=== PATIENT | female | born 1990 | race Caucasian/White ===

== ENCOUNTER 2018-04-08 09:22 | Inpatient (IN) | payer BC ==
[~2018-04-08] VITALS: Ht 170.2 cm; Wt 104.5 kg
[2018-04-09 18:33] VITALS: BP 136/78; PULSE 72; TEMP 98.3
[2018-04-09 19:34] LABS: COLLECTION METHOD CLEAN CATCH
[2018-04-09 19:40] LABS: PH 7 (5-8); SQUAMOUS EPITHELIAL 0-2 /hpf; URINE APPEARANCE Clear; URINE BACTERIA Rare /hpf; URINE BILIRUBIN Negative (NEGATIVE); URINE BLOOD Negative (NEGATIVE); URINE COLOR Yellow; URINE GLUCOSE Negative (NEGATIVE); URINE KETONE Negative (NEGATIVE); URINE LEUKOCYTE ESTERASE Trace (NEGATIVE); URINE NITRATE Negative (NEGATIVE); URINE PROTEIN(semi-quant) Negative (NEGATIVE); URINE RBC 0-2 /hpf; URINE UROBILINOGEN Negative (NEGATIVE); URINE WBC 0-2 /hpf
[2018-04-09] MEDS ORDERED: PRENATAL MVI PO (20:30)
[2018-04-09] MEDS ORDERED: GARLIC100 MG PO (20:31)
[2018-04-09] MEDS ORDERED: OMEGA-3 1000 MG1 CAP PO (20:31)
[2018-04-09] MEDS ORDERED: CALCIUM CARBON650 M2 PO (20:31)
[2018-04-09] MEDS ORDERED: PRILOSEC 20MG20 MG PO (20:32)
[2018-04-09 21:00] VITALS: BP 137/82; PULSE 70
[2018-04-09 21:15] LABS: BASO % 0.2 % (0.0-2.0); EOS # 0.1 (0.0-0.7); EOS % 0.8 % (0-4.0); GRAN # 6.7 (1.4-6.5); HEMOGLOBIN 11.2 g/dl (12.5-16.0); LYMPH # 1.3 (1.2-3.4); LYMPH % 14.4 % (20.0-51.0); MEAN CELL VOLUME 92 fl (80.0-100.0); MEAN CORPUSCULAR HEMOGLOBIN 32 pg (27.0-31.0); MEAN CORPUSCULAR HGB CONC 35 g/dl (33.0-37.0); MEAN PLATELET VOLUME 11.2 fl (7.4-10.4); MONO # 0.9 (0.1-0.6); MONO % 9.5 % (1.7-9.3); PLATELET COUNT 182 K/mm3 (130-400); RED BLOOD COUNT 3.53 M/mm3 (4.10-5.30); REDCELL DISTRIBUTION WIDTH-CV 12.5 % (11.5-14.5)
[2018-04-09 21:19] LABS: HEMATOCRIT 32.4 % (37.0-47.0)
[2018-04-09 21:23] LABS: ALBUMIN 3.3 gm/dL (3.5-5.0); BILIRUBIN,TOTAL 0.3 mg/dL (0.0-1.0); CALCIUM 8.7 mg/dL (8.4-10.2); CREATININE, serum 0.55 mg/dL (0.52-1.25); POTASSIUM 3.7 mmol/L (3.4-5.0); TOTAL PROTEIN 6.7 gm/dL (6.4-8.2)
[2018-04-09 21:30] VITALS: BP 140/78; PULSE 77
[2018-04-09 22:00] VITALS: BP 120/67; PULSE 76
[2018-04-09 22:30] VITALS: BP 142/84; PULSE 85
[2018-04-09 23:00] VITALS: BP 123/72; PULSE 80; TEMP 98
[2018-04-10] VITALS (62 sets, daily range): BP systolic 91–175; BP diastolic 50–100; PULSE 61–100; TEMP 97.6–98.7
[2018-04-11] VITALS (9 sets, daily range): BP systolic 127–149; BP diastolic 51–87; PULSE 62–92; TEMP 97.7–97.8
[2018-04-12 00:32] VITALS: BP 130/72; PULSE 72; TEMP 98.1
[2018-04-12 02:00] VITALS: BP 132/68; PULSE 72; TEMP 98
[2018-04-12] MEDS ORDERED: MOTRIN 800800 MG/TAB PO (05:37)
[2018-04-12] MEDS ORDERED: NORCO 325 MG-51 TAB PO (05:37)
[2018-04-12 07:16] VITALS: BP 136/84; PULSE 62; TEMP 97.6
[2018-04-12 16:26] VITALS: BP 134/72; PULSE 84; TEMP 97.8
== END 2018-04-12 17:35 | disposition home or self-care (01) | DRG 775 ==
LOC: LDR 09:22 → OB 04-09 19:19 → LDR 04-09 19:19 → OB 04-11 02:40
PROVIDERS: Obstetrics & Gynecology
PROC: 10E0XZZ Delivery of Products of Conception, External Approach (ICD-10-PCS; principal; 2018-04-09)
PROC: 0HQ9XZZ Repair Perineum Skin, External Approach (ICD-10-PCS; 2018-04-09)
PROC: 3E033VJ Introduction of Other Hormone into Peripheral Vein, Percutaneous Approach (ICD-10-PCS; 2018-04-09)
PROC: 10907ZC Drainage of Amniotic Fluid, Therapeutic from Products of Conception, Via Natural or Artificial Opening (ICD-10-PCS; 2018-04-09)
DX: O13.3 Gestational [pregnancy-induced] hypertension without significant proteinuria, third trimester (principal); O70.0 First degree perineal laceration during delivery; O99.824 Streptococcus B carrier state complicating childbirth; O69.1XX0 Labor and delivery complicated by cord around neck, with compression, not applicable or unspecified; Z3A.39 39 weeks gestation of pregnancy; Z37.0 Single live birth
CPT/HCPCS: J2405; J2540; J2590; J2795; J7120

== ENCOUNTER 2019-11-14 06:19 | Inpatient (IN) | payer OTHER ==
[~2019-11-14] VITALS: Ht 170.2 cm; Wt 103.6 kg
[~2019-11-14 06:19] MED LIST: CALCIUM CARBON650 M2 PO; GARLIC100 MG PO; MOTRIN 800800 MG/TAB PO; NORCO 325 MG-51 TAB PO; OMEGA-3 1000 MG1 CAP PO; PRENATAL MVI PO; PRILOSEC 20MG20 MG PO
[2019-11-16] VITALS (32 sets, daily range): BP systolic 121–166; BP diastolic 62–95; PULSE 54–86; TEMP 97.3–98.1
--- NOTE | 2019-11-16 07:20 | NUR ---
Presents to labor and delivery. Assessment done, questions asked and answered. Iv to left hand started lactated ringers. 0745 Pitocin 2 abdon units iv started as ordered and per policy. 0750 Pen g 5000 million units iv started as ordered and per protocol.
--- NOTE | 2019-11-16 08:00 | NUR ---
Rests in bed, alert. Dr. Pinedo here, vag exam done, arom done. Moderate amount of clear fluid noted. Pad changed.
[2019-11-16 08:25] LABS: BASO % 0.2 % (0.0-2.0); EOS # 0.1 (0.0-0.7); EOS % 1.1 % (0-4.0); GRAN # 5.6 (1.4-6.5); HEMOGLOBIN 11.8 g/dl (12.5-16.0); LYMPH # 1.6 (1.2-3.4); LYMPH % 19.5 % (20.0-51.0); MEAN CELL VOLUME 93 fl (80.0-100.0); MEAN CORPUSCULAR HEMOGLOBIN 32 pg (27.0-31.0); MEAN CORPUSCULAR HGB CONC 35 g/dl (33.0-37.0); MEAN PLATELET VOLUME 11.2 fl (7.4-10.4); MONO # 0.7 (0.1-0.6); MONO % 8.6 % (1.7-9.3); PLATELET COUNT 156 K/mm3 (130-400); RED BLOOD COUNT 3.66 M/mm3 (4.10-5.30); REDCELL DISTRIBUTION WIDTH-CV 12.5 % (11.5-14.5)
[2019-11-16 08:39] LABS: HEMATOCRIT 33.9 % (37.0-47.0)
--- NOTE | 2019-11-16 08:45 | NUR ---
Request epidural. Anesthesia notified of request.
--- NOTE | 2019-11-16 09:00 | NUR ---
Anesthesia here, visits with patient. Sits up for epidural.0913 Space obtained 0914 Test dose given by anesthesia Jayden.
--- NOTE | 2019-11-16 12:14 | NUR ---
Tylenol 1000 mg given as ordered for headache.
--- NOTE | 2019-11-16 14:00 | NUR ---
Rests in bed, alert. Sve done, dilated to nine. Repositioned to left side, pad changed.
--- NOTE | 2019-11-16 14:15 | NUR ---
heart tones down in the eightys for seventy seconds. O28L on, pitocin off, repositioned in bed. Dr. Pinedo told this information. 1420 Dr. Pinedo in room, sve done. 1425 Pitocin started back up at 20 ccs as ordered. 1427 Patient complete. Pushes with contractions. 1432 Spontaneous delivery of baby boy by Dr. Pinedo. 1434 Spontaneous delivery of placenta by Dr. Pinedo. Pitocin 333ccs an hour started as ordered and per policy.
--- NOTE | 2019-11-16 15:00 | NUR ---
Rests in bed, alert. Holds baby lovingly. Family at bedside.
--- NOTE | 2019-11-16 15:30 | NUR ---
Rests in bed, alert. baby. Denies any needs at this time.
--- NOTE | 2019-11-16 16:30 | NUR ---
Rests in bed, alert. Denies any needs at this time.
--- NOTE | 2019-11-16 17:30 | NUR ---
Ambulates to the bathroom. Tolerates well. Susan-care explained and done by patient. To room 219 via wheel chair. Assisted to bed. Oriented to room.
[2019-11-17] VITALS: BP 140/74; PULSE 82
[2019-11-17 08:19] VITALS: BP 147/83; PULSE 77; TEMP 97.9
--- NOTE | 2019-11-17 09:15 | NUR ---
Initial visit; Parents thanked Caddie for offering congratulations and God's blessings for the of their son. Caddie thanked family for choosing [facility].
[2019-11-17] MEDS ORDERED: MOTRIN 800800 MG/TAB PO (10:32)
[2019-11-17 12:34] VITALS: BP 146/90; PULSE 76; TEMP 97.7
[2019-11-17 15:10] VITALS: BP 140/79; PULSE 71
== END 2019-11-17 17:15 | disposition home or self-care (01) | DRG 807 ==
LOC: LDR 06:19 → OB 11-16 17:30 → LDR 11-16 17:43 → OB 11-17 17:15
PROVIDERS: ADMIT Obstetrics & Gynecology
PROC: 10E0XZZ Delivery of Products of Conception, External Approach (ICD-10-PCS; principal; 2019-11-16)
PROC: 3E033VJ Introduction of Other Hormone into Peripheral Vein, Percutaneous Approach (ICD-10-PCS; 2019-11-16)
PROC: 10907ZC Drainage of Amniotic Fluid, Therapeutic from Products of Conception, Via Natural or Artificial Opening (ICD-10-PCS; 2019-11-16)
PROC: 0UQMXZZ Repair Vulva, External Approach (ICD-10-PCS; 2019-11-16)
DX: O99.824 Streptococcus B carrier state complicating childbirth (principal); Z37.0 Single live birth; O13.4 Gestational [pregnancy-induced] hypertension without significant proteinuria, complicating childbirth; O71.82 Other specified trauma to perineum and vulva; Z3A.39 39 weeks gestation of pregnancy
CPT/HCPCS: J2540; J2590; J7120